=== PATIENT | female | born 1950 | race Caucasian/White ===

== ENCOUNTER → 2017-12-16 | Outpatient (CLI) | payer MEDICARE ==
[~2017-12-16] MED LIST: ASPI81TA23 PO; BENA25CA4 PO; CITRTAB16 PO; CLAR10CA3 PO; LISI10TA3 PO; MAGN400T2 PO; MULT-84 PO; VITA1000 PO; VITA200C3 PO
== END ==
LOC: CPRE 09:21
PROVIDERS: ATTEND Orthopaedic Surgery
DX: M17.11 Unilateral primary osteoarthritis, right knee (principal)

== ENCOUNTER 2018-01-01 06:37 | Inpatient (IN) | payer MEDICARE ==
[~2018-01-01] VITALS: Ht 162.6 cm; Wt 51.1 kg
--- NOTE | 2018-01-01 06:57 | HHI.DCPOC ---
Discharge Care Plan Diagnosis: (1) Primary localized osteoarthrosis, lower leg (2) Status post total knee replacement, right Your Health Problems Are: Difficulty with ADL Goals to Promote Your Health * To prevent worsening of your condition and complications * To maintain your health at the optimal level Directions to Meet Your Goals Take your medications as prescribed Follow your dietary instruction Follow activity as directed Keep your appointments as scheduled Take your immunizations and boosters as scheduled If your symptoms worsen call your PCP, if no PCP go to Urgent Care Center or Emergency Room Smoking is Dangerous to Your Health. Avoid second hand smoke Call the 24-hour hour crisis hotline for domestic abuse at [place] [place] Jan 01, 2018 06:57
--- NOTE | 2018-01-01 06:58 | HHI.FF ---
Face to Face Verification Diagnosis: (1) Primary localized osteoarthrosis, lower leg (2) Status post total knee replacement, right Physical Therapy Gait training, Transfer training, bed to chair Knee: Total knee Right LE Weight Bearing: WB as tolerated Right LE Range of Motion: Active ROM Nursing Nursing: Daphne teaching Dressing Changes: Do not change dressing Additional Instructions 1st dressing change in office I have seen patient Nusrat Benito on 01/01/18. My clinical findings support the need for the requested home health care services because: Limited ability to care for self High risk of falls I certify that my clinical findings support that this patient is homebound because: Post-op weakness Unsteady gait/balance [place] [place] Jan 01, 2018 06:58
[2018-01-01] MEDS ORDERED: WALKER WHEELS/F1 MIS (07:00)
[2018-01-01] MEDS ORDERED: COMMODE 3-IN-11 MIS (07:00)
[2018-01-01] MEDS ORDERED: CPMMACHINE (07:00)
[2018-01-01] MEDS ORDERED: POVIDONE IODINE 5% (ANTISEPSIS KIT) 4 APPLICATIONS EACH NARE PRN (07:45)
[2018-01-01] MEDS ORDERED: LACTATED RINGER'S 1000 ML IV PRN (07:45)
[2018-01-01] MEDS ORDERED: DEXAMETHASONE SOD PHOS 20 MG/5 ML VIAL IV PUSH ONE (07:45)
[2018-01-01] MEDS ORDERED: METOPROLOL TARTRATE 25 MG TAB PO PRN (07:45)
[2018-01-01] MEDS ORDERED: CHLORHEXIDINE GLUCONATE 2 % 1 PACK (2 CLOTHS) TOPICAL PRN (07:45)
[2018-01-01] MEDS ORDERED: SODIUM CHLORID 0.9% 500 ML IV PRN (07:45)
[2018-01-01] MEDS ORDERED: POVIDONE IODINE 7.5% SCRUB 118 ML BOTTLE TOPICAL SCH (08:00)
[2018-01-01] MEDS ORDERED: ceFAZolin 2 GM PREMIX 50 ML IV SCH (08:00)
[2018-01-01] MEDS ORDERED: TRANEXAMIC ACID IV SCH ×2 (08:00→12:45)
[2018-01-01] MEDS ORDERED: VANCOMYCIN 1 GM/200 ML PREMIX IV SCH (08:00)
[2018-01-01] MEDS ORDERED: SODIUM CHLORIDE 0.9% IV SCH ×2 (08:00→12:45)
[2018-01-01] MEDS ORDERED: CHLORHEXIDINE GLUCONATE 4% SOLN 120 ML BTL TOPICAL SCH (08:00)
[2018-01-01] MEDS ORDERED: ROPIVACAINE PERI-ARTICULAR INJECTION. P-ARTICULR SCH ×5 (08:00)
[2018-01-01] MEDS ORDERED: BUPIVACAINE LIPOSOME PF 1.3% 20 ML VIAL ONE (08:39)
[2018-01-01] MEDS ORDERED: MIDAZOLAM HCL 5 MG/5 ML VIAL ONE (08:40)
[2018-01-01] MEDS ORDERED: BUPIVACAINE HCL PF 0.5% 30 ML VIAL ONE (08:40)
[2018-01-01] MEDS ORDERED: SODIUM CHLORIDE 0.9% INJ 10 ML ONE (08:41)
[2018-01-01] MEDS ORDERED: TETRACAINE PF 1% INJ 2 ML AMP ONE (09:11)
[2018-01-01] MEDS ORDERED: GENTAMICIN SULFATE 80 MG/2 ML VIAL IRRIGATION ONE (10:11)
--- NOTE | 2018-01-01 10:57 | PD.OP ---
cc: Jesús Almanzar MD Operative Report Date of Surgery: Jan 01, 2018 Preoperative Diagnosis: Right knee severe arthritis, status post previous open procedures Postoperative Diagnosis: Same Procedure: Right total knee arthroplasty Anesthesia: Spinal and adductor canal block Surgeon: Jesús Almanzar Java Enterprise Architect(s): KATIE Ferraro The surgical procedure was assisted by my Advanced Registered Nurse Practitioner. My UNDER SHERIFF presence was necessary throughout this case for the manipulation and positioning of the surgical extremity. My UNDER SHERIFF was assisting me throughout the duration of this procedure. The skill set of an Advance Registered Nurse Practitioner was medically necessary to complete this procedure. During the surgical case, the surgical garment assembler was working at the back table and the Advance Registered Nurse Practitioner was directly assisting me. Operation and Findings: IMPLANTS: DePuy Attune: Patella: size 29. Femur, posterior stabilized size 5. Tibia, rotating platform size 4. Tibial insert, rotating platform, posterior stabilized size 5 mm thickness. ESTIMATED BLOOD LOSS: 75 cc TOURNIQUET TIME: 48 minutes at 250 mmHg pressure. JUSTIFICATION FOR PROCEDURE: The patient has end-stage osteoarthritis to the knee. There is an attached conservative measures pathway form in the chart that describes the nonoperative measures that were undertaken prior to consideration of surgical management. The patient understood the risks and benefits of surgical management. See my office notes for further details PROCEDURE: The patient was brought back to the operative theatre. Adequate anesthesia was obtained. The patient received intravenous vancomycin and Ancef. The lower extremity was prepped and draped in the usual sterile fashion.The leg was exsanguinated, the tourniquet was raised. A standard anterior incision was performed followed by medial parapatellar arthrotomy was performed. End-stage arthritis was identified. Osteotomy of the patella was performed. We drilled holes for the patella. We trialed the patella component. We placed an intramedullary guide into the distal femur. We ultimately resected 15 mm off of the distal femur in 5 degrees of valgus. The remnants of the ACL and PCL were resected. Osteotomy of the proximal tibia was performed, resecting 7 mm off of the medial side. This was done with 3 degrees of posterior slope using an extramedullary guide. The distal end of the guide was placed in the mid aspect of the ankle. The femur was sized, and four chamfer cuts were completed in 3 of external rotation. We then cut the central box in the distal femur to replace the PCL. We resected the remnants of the menisci and removed osteophytes off of the femur and tibia. We then trialed the knee. We punched the tibia for the keel, and then used standard technique to cement in components. Excess cement was removed. We trialed the knee again and the final polyethylene thickness was chosen to provide extension to 0 degrees, and flexion of 140 degrees to gravity. The ligaments were appropriately balanced. Lateral release was necessary to obtain excellent patellofemoral tracking. The tourniquet was released and adequate hemostasis was obtained. An intra- articular injection of a ropivacaine cocktail was injected. The posterior knee was inspected for excess cement, which was removed. The final polyethylene was put into position after thorough irrigation. We then closed deep fascia with a #2 Stratafix followed by skin with 2-0 Vicryl followed by Dermabond dressing. Postop plan is to weight-bear as tolerated. DVT prophylaxis will be performed with Sylvia, BEAU crowder, early mobilization, and Lovenox followed by aspirin. Jesús Almanzar MD Jan 01, 2018 10:57
[2018-01-01] MEDS ORDERED: ALUMINUM/MAGNESIUM/SIMETH 30 ML CUP PO PRN (11:00)
[2018-01-01] MEDS ORDERED: Post-op Orders (for Pharmacy) XX ONE (11:00)
[2018-01-01] MEDS ORDERED: BISACODYL 10 MG SUPP RECTAL PRN (11:00)
[2018-01-01] MEDS ORDERED: NALOXONE HCL 0.4 MG/ML AMP IV PUSH PRN (11:00)
[2018-01-01] MEDS ORDERED: ZOLPIDEM TARTRATE 5 MG TAB PO PRN (11:00)
[2018-01-01] MEDS ORDERED: MAGNESIUM HYDROXIDE SUSP 30 ML CUP PO PRN (11:00)
[2018-01-01] MEDS ORDERED: MORPHINE SULFATE 4 MG/ML INJ IV PUSH PRN (11:00)
[2018-01-01] MEDS ORDERED: ONDANSETRON ODT 4 MG TAB PO PRN (11:00)
[2018-01-01] MEDS ORDERED: ACETAMINOPHEN/HYDROcodone 325 MG/5 MG TAB PO PRN (11:00)
[2018-01-01] MEDS ORDERED: DO NOT ADM ANY ANTICOAGULANT DRUGS PRN (11:30)
[2018-01-01] MEDS ORDERED: MIDAZOLAM HCL 2 MG/2 ML VIAL ONE (11:37)
[2018-01-01] MEDS: SODIUM CHLOR 0.9% 1000 ML INJ 1,000 ML IV SCH ×2 (12:00→21:20)
--- NOTE | 2018-01-01 12:17 | RADRPT ---
EXAM DATE: 01/01/2018 11:54 AM EDT AGE/SEX: 67 years / Female INDICATIONS: Post-op right total knee replacement. CLINICAL DATA: This is the patient's initial encounter. Patient reports that signs and symptoms have been present for 1 day and indicates a pain score of 0/10. MEDICAL/SURGICAL HISTORY: None. None. COMPARISON: No prior [place] exams available for comparison. FINDINGS: Two views of the knee reveal a total knee prosthesis in good position. No fracture or dislocation is observed. Soft tissues are unremarkable. No joint effusion is seen. CONCLUSION: Electronically signed by: Tomy Morrissey MD 01/01/2018 12:16 PM EDT
[2018-01-01 16:00] VITALS: BP 112/59; PULSE 78; RESP 18; TEMP 97.3; O2SAT 99
[2018-01-01] MEDS: ACETAMINOPHEN/HYDROcodone 325 MG/5 MG TAB PO PRN ×2 (17:04→21:20)
[2018-01-01 20:00] VITALS: BP 110/51; PULSE 87; RESP 17; TEMP 97.7; O2SAT 99
[2018-01-01 21:45] VITALS: O2SAT 99
[2018-01-02 00:01] VITALS: BP 102/52; PULSE 71; RESP 17; TEMP 98.3; O2SAT 99
[2018-01-02 04:00] VITALS: BP 119/57; PULSE 82; RESP 18; TEMP 97.6; O2SAT 97
[2018-01-02] MEDS: ACETAMINOPHEN/HYDROcodone 325 MG/5 MG TAB PO PRN ×2 (04:29→09:29)
[2018-01-02 05:55] LABS: HEMATOCRIT 26.9 % (35.0-46.0); MEAN CELL VOLUME 93.2 FL (80.0-100.0); MEAN CORPUSCULAR HEMOGLOBIN 31.3 PG (27.0-34.0); MEAN CORPUSCULAR HGB CONC 33.5 % (32.0-36.0); MEAN PLATELET VOLUME 7.3 FL (7.0-11.0); PLATELET COUNT 237 TH/MM3 (150-450); RED BLOOD COUNT 2.89 MIL/MM3 (4.00-5.30); RED CELL DISTRIBUTION WIDTH 12.8 % (11.6-17.2); WHITE BLOOD COUNT 11.4 TH/MM3 (4.0-11.0)
[2018-01-02 07:30] VITALS: BP 131/62; PULSE 68; RESP 20; TEMP 97.6; O2SAT 98
[2018-01-02] MEDS ORDERED: DEXAMETHASONE SOD PHOS 20 MG/5 ML VIAL IV ONE (07:45)
[2018-01-02] MEDS: SODIUM CHLOR 0.9% 1000 ML INJ 1,000 ML IV SCH (08:00)
[2018-01-02] MEDS ORDERED: LISINOPRIL 10 MG TAB PO SCH (09:00)
[2018-01-02] MEDS ORDERED: diphenhydrAMINE HCL 25 MG CAP PO SCH (09:00)
[2018-01-02] MEDS ORDERED: LORATADINE 10 MG TAB PO SCH (09:00)
[2018-01-02] MEDS ORDERED: ENOXAPARIN SODIUM 40 MG/0.4 ML SYRINGE SQ SCH (10:00)
[2018-01-02 10:59] VITALS: O2SAT 97
[2018-01-02] MEDS ORDERED: MULTIVITAMINS/MINERALS THERAPEUTIC TAB PO SCH (21:00)
[2018-01-02] MEDS ORDERED: DOCUSATE SODIUM 100 MG CAP PO SCH (21:00)
--- NOTE | 2018-01-03 12:18 | HHI.DS ---
Discharge Summary Admission Date Jan 01, 2018 at 06:37 Discharge Date: Jan 02, 2018 Admitting Diagnosis Primary localized OA, lower leg Status post total knee replacement, right. Diagnosis: (1) Primary localized osteoarthrosis, lower leg Diagnosis: Principal ICD Codes: M17.10 - Unilateral primary osteoarthritis, unspecified knee (2) Status post total knee replacement, right Diagnosis: Principal ICD Codes: Z96.651 - Presence of right artificial knee joint Procedures Right TKA Brief History This is a 67 year old female patient with severe OA of the right knee CBC/BMP: 01/02/18 0532 Significant Findings Laboratory Tests Test 01/02/18 05:32 White Blood Count 11.4 TH/MM3 (4.0-11.0) Red Blood Count 2.89 MIL/MM3 (4.00-5.30) Hemoglobin 9.0 GM/DL (11.6-15.3) Hematocrit 26.9 % (35.0-46.0) Hospital Course The patient was admitted to the hospital for severe OA of the right knee to have a right TKA. The patient's surgery went well without complication. The patient is WBAT on the right LE. The patient is on a regular diet. The patient was placed on Lovenox followed by ASA for DVT prophylaxis. The patient was discharged home with home health and will f/u in the office as previously scheduled with Dr. Almanzar or KATIE Reed. Pt Condition on Discharge: Stable Discharge Disposition: Disch w/ Home Health Serv Discharge Instructions Diet Instructions: As Tolerated, No Restrictions Activities You Can Perform: Weight Bearing as Maurizio Activities to Avoid: Strenuous Activity Follow up Referrals: Orthopedics with Jesús Almanzar MD New Medications: Commode 3-in-1 (Commode 3-in-1) 1 Mis Mis EA .XX DIRECTED, #1 0 Refills CPM-Continuous Passive Motion Machine (CPM-Continuous Passive Motion Machine) 1 Ea Device EA .XX DIRECTED, #1 0 Refills Walker with Front Wheels (Walker with Front Wheels) 1 Mis Mis EA .XX DIRECTED, #1 0 Refills Continued Medications: Jngykzg-Vadtjusvk-Wtwnboi D (Citracal Calcium+D Slow Release) 600-40-500 Mg-Mg- Unit Tab 2 TAB PO DAILY Cholecalciferol (Vitamin D-1000) 1,000 Unit Tab 1000 UNITS PO DAILY for Nutritional Supplement, #1 BOTTLE 0 Refills Diphenhydramine HCl (Benadryl Allergy) 25 Mg Cap 1 TAB PO DAILY Lisinopril (Lisinopril) 10 Mg Tab 10 MG PO DAILY, #30 TAB 0 Refills Loratadine (Claritin) 10 Mg Cap 10 MG PO DAILY for Allergy Management, CAP 0 Refills Magnesium Oxide (Magnesium Oxide) 400 Mg Tab 400 MG PO DAILY for Nutritional Supplement, TAB 0 Refills Multiple Vitamin (Daily Vitamin) 1 Tab Tab 1 TAB PO DAILY Discontinued Medications: Aspirin DR (Aspirin EC) 81 Mg Tabdr 81 MG PO DAILY, TAB 0 Refills Vitamin E (Vitamin E) 200 Unit Cap 200 UNITS PO DAILY for Nutritional Supplement, CAP 0 Refills [place] [place] Jan 03, 2018 12:18
== END 2018-01-02 14:19 | disposition home health service (06) | DRG 470 ==
LOC: HSDI 06:37 → N06A 16:37
PROVIDERS: ADMIT Orthopaedic Surgery; ATTEND Orthopaedic Surgery
PROC: 3E0T3BZ Introduction of Anesthetic Agent into Peripheral Nerves and Plexi, Percutaneous Approach (ICD-10-PCS; 2018-01-01)
PROC: 0SRC0J9 Replacement of Right Knee Joint with Synthetic Substitute, Cemented, Open Approach (ICD-10-PCS; principal; 2018-01-01 09:06)
DX: M17.11 Unilateral primary osteoarthritis, right knee (principal); I10 Essential (primary) hypertension; M81.0 Age-related osteoporosis without current pathological fracture; Z87.891 Personal history of nicotine dependence; Z79.82 Long term (current) use of aspirin
CPT/HCPCS: 73560; 76937; 85027; 86850; 86900; 86901; 94150; C1776; C9290; J0690; J0735; J1100; J1580; J1650; J1885; J2250; J2795; J3010; J3370; J7030; J7120; L1830